=== PATIENT | male | born 1970 | race Caucasian/White ===

== ENCOUNTER 2021-02-06 15:42 | Emergency (ER) | payer OTHER, SELFPAY ==
--- NOTE | ~2021-02-06 | XR_ITS ---
EXAMINATION: XR hand LT min 3V EXAM DATE: 02/06/2021 16:10 INDICATION: Puncture with nail between 2nd and 3rd MCP joints. TECHNIQUE: Left hand frontal, lateral and oblique projections obtained and reviewed. There is no laurie or study for comparison. FINDINGS: Left metacarpal bones are unremarkable. There are no acute fractures or dislocations ident ified. There is no subcutaneous gas. The soft tissue is unremarkable. There are no radiopaque for eign bodies. 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 IMPRESSION: No acute osseous findings. Reviewed, dictated and finalized at location B. NESS SERVICES COORDINATOR IMPRESSION: No acute osseous findings.
[2021-02-06 15:43] VITALS: BP 116/76; PULSE 84; RESP 18; TEMP 35.8; O2SAT 98
[2021-02-06] MEDS: TETANUS,DIPHTHERIA,AC PERTUSSIS ADULT (0.5 ML) BOOSTRIX IM (16:26)
[2021-02-06] MEDS: ceFAZolin SODIUM 1 GM VIAL IV PUSH (16:26)
[2021-02-06 16:27] LABS: Basophils Absolute Auto 0.1 K/mm3 (0.0-0.1); Basophils Percent Auto 0.5 % (0.2-1.2); Eosinophils Absolute Auto 0.1 K/mm3 (0-0.3); Eosinophils Percent Auto 1.2 % (0-4.4); Hematocrit 47.8 % (42.0-52.0); Hemoglobin 16.2 g/dL (14.0-18.0); Immature Granulocyte Absolute 0.05 K/mm3 (0.00-0.031); Immature Granulocyte Percent A 0.4 % (0-0.5); Lymphocytes Percent Auto 21.6 % (18.3-44.2); Mean Corpuscular HGB Conc 33.9 g/dl (32-36); Mean Corpuscular Hemoglobin 30.8 pg (26-34); Mean Corpuscular Volume 90.9 fl (80-100); Mean Platelet Volume 9.5 fl (7.4-10.4); Monocytes Percent Auto 8.4 % (2.6-8.5); Neutrophils Absolute Auto 7.9 K/mm3 (1.3-6.7); Neutrophils Percent Auto 67.9 % (45.5-73.1); Platelet Count Result 290 k/mm3 (150-375); Red Blood Count 5.26 M/mm3 (4.6-6.20); Red Cell Distribution Width 12.4 % (11.5-14.5); White Blood Count 11.6 K/mm3 (4.5-10.0)
[2021-02-06] MEDS: LIDOCAINE HCL 1% LOCAL INJ 20 ML VIAL (16:35)
[2021-02-06 17:29] LABS: Anion Gap 6 mmol/L (8-16); Blood Urea Nitrogen 16 mg/dL (9-20); CRP 0.8 mg/dL (<1.0); Calcium 9.2 mg/dL (8.4-10.2); Carbon Dioxide 25 mmol/L (22-30); Chloride 106 mmol/L (98-107); Estimated CRCL calculation 75 ml/min; Estimated Glomerular Filt Rate > 60; Glucose 110 mg/dL (75-110); Potassium 4.1 mmol/L (3.4-5.0); Sodium 137 mmol/L (137-145)
--- NOTE | 2021-02-06 17:37 | ED.GENADULT ---
HPI - General Adult General Chief complaint: Extremity Injury, Upper <Andrei Garrison PA-C - Last Filed: 02/06/21 17:46> Stated complaint: lef hand pain/swelling <Andrei Garrison PA-C - Last Filed: 02/06/21 17:46> Time Seen by Provider: 02/06/21 15:57 <Andrei Garrison PA-C - Last Filed: 02/06/21 17:46> Source: patient <Andrei Garrison PA-C - Last Filed: 02/06/21 17:46> Mode of arrival: ambulatory <Andrei Garrison PA-C - Last Filed: 02/06/21 17:46> Limitations: no limitations <Andrei Garrison PA-C - Last Filed: 02/06/21 17:46> History of Present Illness HPI narrative: Patient is a 50-year-old male who presents with a swollen tender right hand noting that 2 days ago while working at home he had a nail puncture through the palm of the left hand at the base of the second digit patient notes swelling of the hand since that is continued to worsen patient has not taken anything for his symptoms patient notes tetanus to be up-to-date <Andrei Garrison PA-C - Last Filed: 02/06/21 17:46> Related Data Allergies/adverse reactions: Allergies Allergy/AdvReac Type Severity Reaction Status Date / Time No Known Allergies Allergy Verified 02/06/21 15:53 <Andrei Garrison PA-C - Last Filed: 02/06/21 17:46> Review of Systems Review of Systems: Narrative: CONSTITUTIONAL: Denies fever, chills, or sweats. SKIN: Denies rash or itching. MUSCULOSKELETAL: Denies joint pain or decreased range of motion or strength NEUROLOGIC: Denies headache, numbness, dizziness, or weakness. PSYCHIATRIC: Denies anxiety or depression. <Andrei Garrison PA-C - Last Filed: 02/06/21 17:46> PMFSH Social History Social History: Social History Gender identity (if verbalized by the patient): Male <ZHANE Gilbert Last Filed: 02/06/21 17:46> Exam Narrative: Exam Narrative: GENERAL: Well-appearing, well-nourished, and in no acute distress. HEAD: Normocephalic, atraumatic. EYES: PERRLA and EOMI. ENT: Nares clear, no rhinorrhea or epistaxis. Mucous membranes moist. EXTREMITIES: Normal range of motion. No edema. Patient with single puncture wound to the palmar aspect left hand just proximal of the second digit with tenderness to palpation palmar and dorsal surface slight erythema no lymphangitic streaking no purulence no drainage SKIN: Warm, dry, no rash. NEURO: No focal deficits. Alert and oriented x3. Neurovascularly intact PSYCH: Normal mood and affect. <ZHANE Gilbert Last Filed: 02/06/21 17:46> Course Course Emergency Course: Patient in the room no distress had I&D of his wound packing was placed will follow with hand surgery given IV antibiotic in the ER tetanus up-to-date will follow with hand surgery <ZHANE Gilbert Last Filed: 02/06/21 17:46> Consultations Consultation #1: Discussed case with hand surgeon Dr. Dacosta who will follow patient in clinic <Andrei Garrison PA-C - Last Filed: 02/06/21 17:46> Date: 02/06/21 <ZHANE Gilbert Last Filed: 02/06/21 17:46> Time: 17:43 <ZHANE Gilbert Last Filed: 02/06/21 17:46> Vital Signs Vital signs: Vital Signs Temperature 96.4 F L 02/06/21 15:43 Pulse Rate 84 02/06/21 15:43 Respiratory Rate 18 02/06/21 15:43 Blood Pressure 116/76 02/06/21 15:43 Pulse Oximetry 98 02/06/21 15:43 Temperature 96.4 F L 02/06/21 15:43 Pulse Rate 84 02/06/21 15:43 Respiratory Rate 18 02/06/21 15:43 Blood Pressure 116/76 02/06/21 15:43 Pulse Oximetry 98 02/06/21 15:43 <Andrei Garrison PA-C - Last Filed: 02/06/21 17:46> Vital Signs Temperature 96.4 F L 02/06/21 15:43 Pulse Rate 84 02/06/21 15:43 Respiratory Rate 18 02/06/21 15:43 Blood Pressure 116/76 02/06/21 15:43 Pulse Oximetry 98 02/06/21 15:43 Temperature 96.4 F L 02/06/21 15:43 Pulse Rate 84 02/06/21
== END 2021-02-06 17:51 | disposition home or self-care (01) ==
PROVIDERS: Emergency Medicine Emergency Medical Services; Emergency Provider General Practice; PCP Family Medicine
DX: L03.114 Cellulitis of left upper limb (principal); S61.432A Puncture wound without foreign body of left hand, initial encounter; Z23 Encounter for immunization; W45.0XXA Nail entering through skin, initial encounter
CPT/HCPCS: 10060; 10061; 36415; 73130; 80048; 85025; 86140; 90471; 90715; 96374; 99284; J0690

== ENCOUNTER 2022-09-25 21:49 | Emergency (ER) | payer OTHER, SELFPAY ==
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
--- NOTE | ~2022-09-25 | XR_ITS ---
XR finger 1st RT min 2V 09/25/2022 22:45 Indication: Right first finger pain Procedure: 3 views right first finger Comparison: 04/08/2014 Findings: There is a comminuted, mildly displaced intra-articular fracture of the right first proxima l phalanx there is mild osteoarthritis at the first carpometacarpal joint. Mild soft tissue swelling. Impression: 1: Comminuted mildly displaced intra-articular fracture right first proximal phalanx. Reviewed, dictated and finalized at location A. Impression: 1: Comminuted mildly displaced intra-articular fracture right first proximal ph alanx.
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
[2022-09-25 21:52] VITALS: BP 154/69; PULSE 100; RESP 18; TEMP 36.2; O2SAT 100
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
[2022-09-25 23:03] LABS: Basophils Absolute Auto 0.1 K/mm3 (0.0-0.1); Basophils Percent Auto 0.4 % (0.2-1.2); Eosinophils Absolute Auto 0.1 K/mm3 (0-0.3); Eosinophils Percent Auto 0.4 % (0-4.4); Hemoglobin 15.6 g/dL (14.0-18.0); Immature Granulocyte Absolute 0.03 K/mm3 (0.00-0.031); Immature Granulocyte Percent A 0.2 % (0-0.5); Lymphocytes Percent Auto 10.6 % (18.3-44.2); Mean Corpuscular HGB Conc 33.2 g/dl (32-36); Mean Corpuscular Hemoglobin 30.5 pg (26-34); Mean Corpuscular Volume 91.8 fl (80-100); Mean Platelet Volume 9.2 fl (7.4-10.4); Monocytes Absolute Auto 1.2 K/mm3 (0.1-0.6); Monocytes Percent Auto 8.2 % (2.6-8.5); Neutrophils Absolute Auto 11.4 K/mm3 (1.3-6.7); Neutrophils Percent Auto 80.2 % (45.5-73.1); Platelet Count Result 296 k/mm3 (150-375); Red Blood Count 5.12 M/mm3 (4.6-6.20); Red Cell Distribution Width 12.6 % (11.5-14.5); White Blood Count 14.2 K/mm3 (4.5-10.0)
[2022-09-25 23:16] LABS: Partial Thromboplastin Time 25.6 SECONDS (22.3-36.8); Prothrombin Time 12.4 Seconds (11.1-14.7)
[2022-09-25 23:17] LABS: Alanine Aminotransferase 16 U/L (6-50); Albumin Level 4.1 g/dL (3.5-5.1); Alkaline Phosphatase 42 U/L (38-126); Anion Gap 12 mmol/L (8-16); Aspartate Amino Transferase 34 U/L (17-59); Bilirubin,Total 0.3 mg/dL (0.2-1.3); Blood Urea Nitrogen 16 mg/dL (9-20); Carbon Dioxide 26 mmol/L (22-30); Chloride 103 mmol/L (98-107); Estimated CRCL calculation 68 ml/min; Estimated Glomerular Filt Rate > 60; Glucose 106 mg/dL (65-110); Sodium 141 mmol/L (137-145)
[2022-09-26] VITALS (8 sets, daily range): BP systolic 124–130; BP diastolic 95–100; PULSE 97; RESP 17; O2SAT 95–99
[2022-09-26] MEDS: MORPHINE SULFATE (*CRX) 2 MG/ML INJ IV PUSH (01:38)
[2022-09-26] MEDS: ONDANSETRON INJ 4 MG/2 ML VIAL IV PUSH (01:38)
== END 2022-09-26 02:35 | disposition home or self-care (01) ==
PROVIDERS: Physician Assistant; Emergency Provider Emergency Medicine; PCP Family Medicine
DX: S62.511A Displaced fracture of proximal phalanx of right thumb, initial encounter for closed fracture (principal); S79.912A Unspecified injury of left hip, initial encounter; Z87.820 Personal history of traumatic brain injury; V23.49XA Other motorcycle driver injured in collision with car, pick-up truck or van in traffic accident, initial encounter
CPT/HCPCS: 29130; 36415; 70450; 71260; 72125; 72129; 72132; 73140; 73552; 74177; 80053; 85025; 85610; 85730; 96374; 96375; 99284; J0131; J2270; J2405; Q9967

== ENCOUNTER 2024-02-12 18:42 | Emergency (ER) | payer OTHER, SELFPAY ==
[2024-02-12 18:49] VITALS: BP 130/96; PULSE 76; RESP 20; TEMP 36.7; O2SAT 100
--- NOTE | 2024-02-12 19:15 | ED.GENADULT ---
HPI - General Adult General Chief complaint: Neck Pain/Injury Stated complaint: Neck Pain Time Seen by Provider: 02/12/24 19:01 Source: patient and RN notes reviewed Mode of arrival: ambulatory Limitations: no limitations History of Present Illness HPI narrative: Patient presents today complaining of neck pain times 2-3 weeks after lifting a heavy object. Denies radiation of pain. Denies numbness or tingling in the arms or hands. Denies weakness. Currently rates his pain 7/10 and has been using marijuana and left a positive without much relief. States Tylenol and ibuprofen is not helpful so he does not try it. He had surgery to his neck with hardware placement approximately 6-7 years ago at [facility] Related Data Allergies Allergy/AdvReac Type Severity Reaction Status Date / Time No Known Allergies Allergy Verified 02/12/24 18:59 Review of Systems Review of Systems: CONSTITUTIONAL: Denies body aches, fever, chills, or sweats. EYES: Denies visual changes, redness, or discharge. ENT: Denies rhinorrhea, congestion, sore throat, or otalgia. CARDIOVASCULAR: Denies chest pain, palpitations, or edema. RESPIRATORY: Denies cough or dyspnea. GASTROINTESTINAL: Denies abdominal pain, nausea, vomiting, or diarrhea. GENITOURINARY: Denies dysuria or hematuria. SKIN: Denies rash, itching, or wounds. MUSCULOSKELETAL: Denies back pain, joint pain, or myalgia.+ neck pain NEUROLOGIC: Denies headache, numbness, tingling, or weakness. PSYCH: Denies depression or anxiety. [facility] Past Medical History Medical History History of traumatic brain injury Social History Social History Substance use: never Gender identity (if verbalized by the patient): Male Comments At time of signature, I have reviewed and agree with nursing past medical, surgical, social and family history unless otherwise noted. Please see nursing chart for further information. There is no relevant family history pertinent to the presenting complaint Exam Narrative: GENERAL: Well-appearing, well-nourished, and in no acute distress. HEAD: Normocephalic, atraumatic. EYES: EOMI. No redness or drainage. Conjunctivae normal. ENT: Mucous membranes pink and moist. Nares clear. No rhinorrhea. TMs normal bilaterally. Throat normal. Uvula midline. NECK: Neck is nontender to palpation. Patient localizes pain to the entire posterior neck. No step-off, edema, ecchymosis, erythema noted. Limited range of motion due to pain and spasm. Full range of motion of both shoulders. Distal sensation intact. Capillary refill normal. Radial pulses normal. Hand commercial front load operator equal and strong. CHEST: No respiratory distress. EXTREMITIES: Normal range of motion. No edema. SKIN: Warm, dry, no rash. Capillary refill normal. Normal skin turgor. NEURO: No focal deficits. Alert and oriented x3. Gait steady. PSYCH: Normal affect. No signs of depression or anxiety. Course Course Level of Care: Express Care Visit Vital Signs Vital signs: Vital Signs Temperature 98.1 F 02/12/24 18:49 Pulse Rate 76 02/12/24 18:49 Respiratory Rate 20 02/12/24 18:49 Blood Pressure 130/96 H 02/12/24 18:49 Pulse Oximetry 100 02/12/24 18:49 Oxygen Delivery Room Air 02/12/24 18:49 Temperature 98.1 F 02/12/24 18:49 Pulse Rate 76 02/12/24 18:49 Respiratory Rate 20 02/12/24 18:49 Blood Pressure 130/96 H 02/12/24 18:49 Pulse Oximetry 100 02/12/24 18:49 Oxygen Delivery Room Air 02/12/24 18:49 Reviewed Medical Decision Making MDM Narrative Medical decision making narrative: Patient will be treated with some Flexeril and prednisone for his neck strain. He has been instructed to follow-up with PCP or nurse surgery if symptoms persist. Anticipatory guidance given. Differential Diagnosis Differential Diagnosis: Torticoll
== END 2024-02-12 19:25 | disposition home or self-care (01) ==
PROVIDERS: Emergency Provider Nurse Practitioner; PCP Family Medicine
DX: S16.1XXA Strain of muscle, fascia and tendon at neck level, initial encounter (principal); X50.0XXA Overexertion from strenuous movement or load, initial encounter; Z87.820 Personal history of traumatic brain injury
CPT/HCPCS: 99213; G0463

== ENCOUNTER 2025-09-09 20:59 | Emergency (ER) | payer OTHER, MEDICAID, SELFPAY ==
[2025-09-09 21:13] VITALS: BP 141/84; PULSE 74; RESP 20; TEMP 36.7; O2SAT 97
--- OUTSIDE RECORDS SUMMARY | 2025-09-10 01:35 | XMS_ITS | Clinical Summary ---
Author Organization [facility] Address [address] [place] [address] Care Team Providers Care Research Professor Name Role Phone Unavailable Primary Care Provider Unavailabl e Source Comments [facility],non-owned Affiliates and Associated Physician Practices is amultiple site organization consisting of ambulatory clinics and hospital sitesin [place], [place], [place]. This disclosure is being madepursuant to the Care Everywhere program and may not contain all information available regarding this patient. Last updated 18.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 Gender Identity Not on file Sexual Orientation Not on file Last Filed Vital Signs Vital Sign Reading Time Taken Comments Blood Pressure 128/83 07/07/2016 8:23 AM CDT Pulse 80 07/07/2016 8:23 AM CDT Temperature 36.6 C (97.8 F) 03/19/2016 12:15 PM CDT Respiratory Rate 18 03/19/2016 1:00 PM CDT Oxygen Saturation 98% 03/19/2016 1:00 PM CDT Inhaled Oxygen Concentration - - Weight 89.8 kg (198 lb) 07/07/2016 8:23 AM CDT Height 177.8 cm (5' 10) 01/12/2016 10:13 AM DEALER ACCOUNT MANAGER Body Mass Index 28.41 01/12/2016 10:13 AM DEALER ACCOUNT MANAGER Plan of Treatment Health Maintenance Due Date Last Done Comments COLOGUARD (AGES 45-75) - COL ON CA SCREENING 1971 COLON MONITORING 1971 COLONOSCOPY - COLON CA SCREENING 1971 CT COLONOGRAPHY - COLON CA SCREENING 1971 Colorectal Cancer Screening 1971 FIT - COLON CA SCREENING 1971 FLEX SIG - COLON CA SCREENING 1971 LIPID TESTING 1971 HIV SCREENING 1986 HEPATITIS C SCREENING 12/12/1989 DTAP/TDAP/TD VACCINES (1 - Tdap) 1990 HEPATITIS B VACCINE (1 of 3 - 19+ 3-dose series) 1990 PNEUMOCOCCAL VACCINE 50+ (1 of 1 - PCV) 2021 ZOSTER VACCINE (1 of 2) 2021 DEPRESSION SCREENING 11/28/2024 COVID-19 VACCINE (1 - 2023-2 5 season) 2025 INFLUENZA VACCINE (#1) 2025 HIB VACCINE Aged Out No longer eligi ble based on patient's age to complete this topic HPV VACCINE Aged Out No longer eligi ble based on patient's age to complete this topic MENINGOCOCCAL (Group B) VACC INE SHARED DECISION-MAKING Aged Out No longer eligibl e based on patient's age to complete this topic MENINGOCOCCAL GROUPS A/C/Y/W VACCINE Aged Out No longer eligible b ased on patient's age to complete this topic
--- OUTSIDE RECORDS SUMMARY | 2025-09-10 01:35 | XMS_ITS | Clinical Summary ---
Author Organization [facility] Address [address] [place] [id number] Care Team Providers Care Injection Molding Operator Name Role Phone RileyMonique TRUCK LEASING MANAGER-C Primary Care Provider [phone] Neftali De Leon MD Unavailable [phone] Allergies No known active allergies Medications No known medications Active Problems Problem Noted Date Diagnosed Date Chest pain, unspecified Family History Medical History Relation Comments Heart Attack Father Stent Cardiac Father Relation Status Comments Father Alive Mother Social History Tobacco Use Types Packs/Day Years Used Date Smoking Tobacco: Former Cigarettes Q uit: 2002 Smokeless Tobacco: Never Alcohol Use Standard Drinks/Week Comments Yes 0 (1 standard drink = 0.6 oz pur e alcohol) Sex and Gender Information Value Date Recorded Sex Assigned at Not on file 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 Gender Identity Not on file Sexual Orientation Not on file Last Filed Vital Signs Vital Sign Reading Time Taken Comments Blood Pressure 112/80 03/21/2017 12:23 PM CDT Pulse 75 03/21/2017 12:23 PM CDT Temperature - - Respiratory Rate - - Oxygen Saturation 96% 03/21/2017 12:23 PM CDT Inhaled Oxygen Concentration - - Weight 86.2 kg (190 lb) 03/21/2017 12:23 PM CDT Height 177.8 cm (5' 10) 03/21/2017 12:23 PM CDT Body Mass Index 27.26 03/21/2017 12:23 PM CDT Plan of Treatment Health Maintenance Due Date Last Done Comments Colorectal Cancer Screening Colonoscopy (10 Years) 1971 Annual Physical 1974 Hepatitis C 1989 DTaP, Tdap and Td Vaccines ( 1 - Tdap) 1990 Hepatitis B Vaccines (1 of 3 - 19+ 3-dose series) 1990 Pneumococcal Vaccine: 50+ Ye ars (1 of 1 - PCV) 2021 Zoster Vaccines (1 of 2) 2021 COVID-19 Vaccine (1 - 2023-2 5 season) 2025 Influenza Adult (#1) 2025 Meningococcal B Vaccine Aged Out No l onger eligible based on patient's age to complete this topic Meningococcal Vaccine Aged Out No zev kris eligible based on patient's age to complete this topic RSV Immunizations Under 20 Months Aged Out No longer eligible based on patient's age to complete this topic Insurance [facility] Care Teams Injection Molding Operator Relationship Specialty Start Date End Date Monique Lin NP-C [address] [place] [address] PCP - General FAMILY PRACTICE 12/29/16 Neftali De Leon MD [id number] [place] [address] Farideh Special Investigator CARDIOVASCULAR DISEASE 01/28/17
--- NOTE | 2025-09-10 01:36 | ED_ITS ---
HPI - General Adult General Chief complaint: Skin/Abscess/Foreign Body Stated complaint: fish hook superglued to finger Time Seen by Provider: 09/10/25 01:18 History of Present Illness HPI narrative: This is a 54-year-old male with a fish hook in his finger. Related Data Allergies Allergy/AdvReac Type Severity Reaction Status Date / Time No Known Allergies Allergy Verified 09/09/25 21:16 [facility] Past Medical History Medical History History of traumatic brain injury Social History Social History Substance use: never Gender identity (if verbalized by the patient): Male Exam Narrative: APPEARANCE: No apparent distress. Head: atraumatic. EYES: EOMI, NOSE: Atraumatic NECK: Trachea midline RESPIRATORY: No increased rate of breathing CARDIOVASCULAR: RRR, ABDOMINAL: Non-distended MUSCULOSKELETAl: No obvious deformities NEURO: Alert. Moving 4/4 extremities SKIN:: In the left 2nd digit there is a fishhook with prox 1 cm of metal sticking out of the distal phalanx. Cap refill intact. PSYCHIATRIC: Normal affect Course Vital Signs Vital signs: Vital Signs Temperature 98.1 F 09/09/25 21:13 Pulse Rate 74 09/09/25 21:13 Respiratory Rate 20 09/09/25 21:13 Blood Pressure 141/84 H 09/09/25 21:13 Pulse Oximetry 97 09/09/25 21:13 Oxygen Delivery Room Air 09/09/25 21:13 Temperature 98.1 F 09/09/25 21:13 Pulse Rate 74 09/09/25 21:13 Respiratory Rate 20 09/09/25 21:13 Blood Pressure 141/84 H 09/09/25 21:13 Pulse Oximetry 97 09/09/25 21:13 Oxygen Delivery Room Air 09/09/25 21:13 Medical Decision Making MDM Narrative Medical decision making narrative: -Course: 54-year-old male presenting with a fishhook injury. Digital block was performed in the book was removed with pliers. Patient given Tdap, 1 mg of IM Ancef and discharged on Keflex. Given return precautions for infection. Vital Signs Vital Signs: Vital Signs Temperature 98.1 F 09/09/25 21:13 Pulse Rate 74 09/09/25 21:13 Respiratory Rate 20 09/09/25 21:13 Blood Pressure 141/84 H 09/09/25 21:13 Pulse Oximetry 97 09/09/25 21:13 Oxygen Delivery Room Air 09/09/25 21:13 Temperature 98.1 F 09/09/25 21:13 Pulse Rate 74 09/09/25 21:13 Respiratory Rate 20 09/09/25 21:13 Blood Pressure 141/84 H 09/09/25 21:13 Pulse Oximetry 97 09/09/25 21:13 Oxygen Delivery Room Air 09/09/25 21:13 Discharge Plan Discharge Clinical Impression: [place] injury to finger Patient Disposition: Home Condition: Stable Instructions: Antibiotic Form, Puncture Wound (DC) Additional Instructions: You were seen emergency department for fishhook injury. Please complete the antibiotics as instructed. If you develop signs of infection like increased swelling pain or purulent discharge return to ED for re-evaluation. Patient Language: [place] Prescriptions: New cephalexin 500 mg capsule 500 mg PO Q12H Qty: 10 0RF No Action prednisone 20 mg tablet 40 mg PO DAILY 5 Days Qty: 10 0RF cyclobenzaprine 10 mg tablet 10 mg PO TID PRN (Reason: muscle spasm) Qty: 20 0RF hydrocodone-acetaminophen 5-325 mg tablet 1 tablet PO Q6H PRN (Reason: pain) Qty: 20 0RF Follow-up/Referrals: Any Moe DO [Primary Care Provider, Family Practice]
[2025-09-10 01:45] VITALS: BP 136/80; PULSE 78; RESP 19; TEMP 36.6; O2SAT 100
[2025-09-10] MEDS: TETANUS,DIPHTHERIA,AC PERTUSSIS ADULT (0.5 ML) BOOSTRIX IM (01:58)
[2025-09-10 02:15] VITALS: BP 136/80; PULSE 78; RESP 19; TEMP 36.6; O2SAT 100
== END 2025-09-10 02:17 | disposition home or self-care (01) ==
PROVIDERS: Emergency Provider Emergency Medicine
DX: S60.451A Superficial foreign body of left index finger, initial encounter (principal); Z23 Encounter for immunization; Z87.820 Personal history of traumatic brain injury; W45.3XXA Fishing hook entering through skin, initial encounter
CPT/HCPCS: 90471; 90715; 96372; 99283; J0690